=== PATIENT | female | born 1960 | race Caucasian/White ===

== ENCOUNTER 2023-11-22 15:02 | Outpatient (AMB) | payer BC, SELFPAY ==
--- NOTE | 2023-11-22 15:04 | MHC.OFFVIS ---
Vital Signs 11/22/23 15:16 Height 5 ft 7.5 in Weight 166 lb BMI 25.6 Intake Visit Reasons: Lipoma of skin Intake Note: This patient presents for lipoma assessment. Pt c/o; reports no pain, reports growing fast and it is developing some veins . Flight Instructor Required: No Accompanied by: Self / Same As Patient Allergies Bee Stings Allergy (Severe, Uncoded 11/22/23 15:10) Unknown HPI HPI Lipoma of skin: Details: 63-year-old female referred for a lipoma. She has this small soft mass on the right lower leg for several years now. However, this has been increasing in size. This has started to cause her some discomfort so she wants this removed. She has describes some skin changes on the overlying skin as well. [facility] Medical History (Updated 11/22/23 @ 15:21 by Francisco Corona MD) Lipoma of lower extremity Depression Insomnia Sleep apnea Migraine Surgical History Hx of section Family History Father Myocardial infarction Social History Alcohol intake: never Patient Tobacco Use Status: Never used Tobacco Review of Systems Const Denies chills and Denies fever(s) Card Denies chest pain, Denies dyspnea and Denies dyspnea on exertion Resp Denies cough, Denies dyspnea and Denies dyspnea on exertion GI Denies hematochezia and Denies change in bowel habits Denies hematuria Musc Denies back pain and Denies limited range of motion Neuro Denies focal weakness and Denies convulsions Psych Denies depression and Denies mood swings Physical Exam Const General: comfortable and no acute distress Orientation/consciousness: patient oriented x3 Neck Neck: Yes no lymphadenopathy Resp Auscultation: clear to auscultation bilaterally Cardio Rhythm: regular rhythm GI Palpation (GI): Soft to palpation, nontender and no guarding Neuro General: patient oriented x3 Extrem Other: Large lipoma on the posterior were leg, about 7-8 cm in widest dimension Assessment & Plan Assessment & Plan (1) Lipoma of lower extremity: Code(s): D17.20 - Benign lipomatous neoplasm of skin and subcutaneous tissue of unspecified limb Category: Medical Plan: She has this large lipoma on the lower leg as described above. She wants to proceed with excision in view of increased in size. I explained the technique of excision which I had recommended be done under monitored anesthesia care in view of the size. I discussed the risks including but not limited to bleeding, infections, poor healing, as well as the benefits and alternatives. I explained to her what to expect postoperatively. She has given consent. Coding Level of Care Code New Pt Level 3 (73451) Diagnoses Lipoma of lower extremity D17.20
[2023-11-22 15:16] VITALS: BMI 25.6
== END 2023-11-22 15:17 | disposition home or self-care (01) ==
PROVIDERS: PCP Physician Assistant; Referring Provider Physician Assistant; Visit Provider Surgery
DX: D17.20 Benign lipomatous neoplasm of skin and subcutaneous tissue of unspecified limb (principal)
CPT/HCPCS: 99203

== ENCOUNTER → 2023-11-22 15:02 | Outpatient (BNVA) | payer BC, SELFPAY | PROVIDERS: PCP Physician Assistant; Referring Provider Physician Assistant; Visit Provider Surgery ==

== ENCOUNTER 2024-01-30 08:25 | Day surgery (SDC) | payer BC, SELFPAY ==
[2024-01-26 14:23] VITALS: BMI 25.6
[2024-01-30 08:37] VITALS: BMI 28.1
[2024-01-30 08:50] VITALS: BP 135/79; PULSE 73; RESP 16; TEMP 37.2; O2SAT 98
[2024-01-30] MEDS: Lactated Ringers 1,000 ML 100 ML IVCONT (08:59)
--- NOTE | 2024-01-30 09:53 | MHC.SHP ---
Pre-Procedural Eval Section A - 24 Hr Update-Section A only Date of Service: 01/30/24 Section B - Complete if H&P > 30 days Chief Complaint: Benign lipomatous neoplasm of skin and subcutaneou Details of Present Illness: Has a large lipoma in the right lower leg Relevant Family History (Specify if Yes): No Relevant Social History: None Present Medications: see Short Stay Collaborative assessment Medical History: Significant History (Depression, sleep apnea) History of Previous Operations: No relevant previous surgery Allergies: Allergies Allergy/AdvReac Type Severity Reaction Status Date / Time Bee Stings Allergy Severe Unknown Uncoded 11/22/23 15:10 Review of Systems Sugical H&P ROS: Negative: Constitution, Cardiovascular, Respiratory and Gastrointestinal Exam Surgical H&P Exam: Normal: Heart and Normal: Lungs and Significant Findings: Extremities (Large lipoma posterior leg right) Plan Diagnosis/Plan: Unchanged I have reviewed the history and physical and performed a pertinent physical examination on my patient. No changes have occurred unless specified. Time Spent With Patient Time: Total time managing care of this patient today ____ minutes.
--- NOTE | 2024-01-30 09:58 | W.PM.OPN ---
Operative Note Operative Note Date of Service: 01/30/24
--- NOTE | 2024-01-30 10:14 | HO.ANESPROP2 ---
Documented by User: Carley Gale NP 01/29/24 12:04 HPI - Anesthesia Eval Consult details Narrative: 63yo F for Excision Lipoma on leg PMFSH Active Problems Active Problems: All Active Problems Lipoma of lower extremity (Acute) Depression (Acute) Insomnia (Acute) Sleep apnea (Acute) Migraine (Acute) Past Medical History Medical History (Updated 11/22/23 @ 15:21 by Francisco Corona MD) Lipoma of lower extremity Depression Insomnia Sleep apnea Migraine Family History Family History Father Myocardial infarction Surgical History Surgical History (Updated 01/30/24 @ 08:37 by Milena Macario RN) History of ankle surgery Hx of section Social History Social History Alcohol intake: never Patient Tobacco Use Status: Former Tobacco user Tobacco use type: Cigarette Use of substances other than those prescribed or required for medical reasons: Yes Are you DNR?: No Advance Directives: No Advance Directives Information Provided: Yes Recently lost weight without trying: No Nutrition Risks: No Nutritional Risk Patient : No Meds Allergies Allergy/AdvReac Type Severity Reaction Status Date / Time Bee Stings Allergy Severe Unknown Uncoded 11/22/23 15:10 Home Medications ?Medication ?Instructions ?Recorded ?Confirmed ?Last Taken ?Type epinephrine 0.3 mg/0.3 mL IM PRN Allergic Reaction 11/22/23 Unknown History injection, auto-injector meclizine 25 mg tablet 25 mg PO TID PRN Dizziness Or 11/22/23 01/26/24 Unknown History Vertigo methylphenidate HCl 5 mg tablet 5 mg PO TID 11/22/23 01/26/24 Unknown History trazodone 50 mg tablet 100 mg PO BEDTIME PRN Insomnia 11/22/23 01/26/24 Unknown History lorazepam 0.5 mg tablet 0.5 mg PO BID PRN anxiety 01/26/24 01/26/24 Unknown History sertraline 100 mg tablet 200 mg PO QPM 01/26/24 01/26/24 Unknown History Exam Height,Weight and Vital Signs: Height 5 ft 7.5 in Weight 75.296 kg Assessment and Plan Assessment Anesthesia Assessment: Chart Reviewed Documented by User: Geovanna Rose DO 01/30/24 10:15 [facility] Past Medical History Medical History (Updated 11/22/23 @ 15:21 by Francisco Corona MD) Lipoma of lower extremity Depression Insomnia Sleep apnea Migraine Family History Family History Father Myocardial infarction Family history of problems with anesthesia: No Surgical History Surgical History (Updated 01/30/24 @ 08:37 by Milena Macario RN) History of ankle surgery Hx of section History of Problems with Anesthesia: No Social History Social History Alcohol intake: never Patient Tobacco Use Status: Former Tobacco user Tobacco use type: Cigarette Use of substances other than those prescribed or required for medical reasons: Yes Are you DNR?: No Advance Directives: No Advance Directives Information Provided: Yes Recently lost weight without trying: No Nutrition Risks: No Nutritional Risk Patient : No Meds Allergies Allergy/AdvReac Type Severity Reaction Status Date / Time Bee Stings Allergy Severe Unknown Uncoded 11/22/23 15:10 Home Medications ?Medication ?Instructions ?Recorded ?Confirmed ?Last Taken ?Type epinephrine 0.3 mg/0.3 mL IM PRN Allergic Reaction 11/22/23 Unknown History injection, auto-injector meclizine 25 mg tablet 25 mg PO TID PRN Dizziness Or 11/22/23 01/26/24 Unknown History Vertigo methylphenidate HCl 5 mg tablet 5 mg PO TID 11/22/23 01/26/24 Unknown History trazodone 50 mg tablet 100 mg PO BEDTIME PRN Insomnia 11/22/23 01/26/24 Unknown History lorazepam 0.5 mg tablet 0.5 mg PO BID PRN anxiety 01/26/24 01/26/24 Unknown History sertraline 100 mg tablet 200 mg PO QPM 01/26/24 01/26/24 Unknown History Exam Exam Date and Time: 01/30/24 1000 Height,Weight and Vital Signs: Height 5 ft 7.5 in Weight 75.296 kg Vital Signs Temperature 99.0 F 01/30/24 08:50 Pulse Rate 73 01/30/24 08:50 Respiratory Rate 16 01/30/24 08:50 Blood Pressure 135/79 01/30/24 08:50 Pulse Oximetry 98 01/30/24 08:50 Oxygen Delivery Method Room Air 01/30/24 08:50 Temperature 99.0 F 01/30/24 08:50 Pulse Rate 73 01/30/24 08:50 Respiratory Rate 16 01/30/24 08:50 Blood Pressure 135/79 01/30/24 08:50 Pulse Oximetry 98 01/30/24 08:50 Oxygen Delivery Method Room Air 01/30/24 08:50 Airway Mallampati Class: I TM Dist: >3cm Neck ROM: Full Loose/Missing/Broken Teeth: No (patient denies any loose or broken teeth) Heart: S1S2 Lungs: CTAB Assessment and Plan Assessment Anesthesia Assessment: Anesthesia Plan Discussed and Chart Reviewed Final Anesthetic Review Family History of Problems with Anesthesia: No History of Problems with Anesthesia: No NPO: Yes ASA Class: II Final Preanesthetic Review: No Changes in Pt Med Stat, Meds/Allgs Chart Reviewed, Consent Obtained/Reviewed and Anes Risks/Benef Reviewed Patient Risk: Low Procedure Risk: Low Anesthetic Plan Anesthetic Plan: MAC: and Agree w/ Assess. and Plan Disposition: Standard PACU
--- NOTE | 2024-01-30 10:54 | P.OP_ITS ---
Operative Note Operative Note Date of Service: 01/30/24 Narrative: Preop diagnosis: Large lipoma, right lower leg Postop diagnosis: The same Procedure: Excision of large lipoma, right lower leg under anesthesia Surgeon: Francisco Corona MD high school assistant principal: THU Gates The patient is a 63 year old female with a large lipomatous mass on the right lower leg on the calf area laterally. She wanted this removed. She understood the technique of the planned procedure as well as the risks, benefits, and alternatives She was brought to the operating room. She was placed in left lateral decubitus position under monitored anesthesia care. The area of the lipomatous mass on the right lower leg was prepped and draped in the usual sterile fashion. A surgical time-out was done. The patient received cefazolin 2 g IV preoperatively. I infiltrated the planned line of incision with lidocaine 1%. I made a transverse incision in the skin overlying the lipoma with a blade 15. This carried down with electrocautery through the full-thickness of the the skin and subcutaneous fat until the lipomatous mass was visualized. I sharply dissected lipomatous mass around the rest of the deep subcutaneous layer circumferentially with electrocautery until the entire lipomas completely delivered. The lipoma measured 9 x 8 cm. I cauterized oozing areas from the excision site. Once hemostasis was confirmed, I irrigated. The incision was closed with full-thickness nylon 3-0 simple interrupted sutures. Dressings were applied. The procedure was completed The patient tolerated procedure well. There were no immediate complications. Initial and final counts of sponges and instruments were correct. Estimated blood loss was about 10 cc. The patient was extubated without difficulty and transferred to the recovery room with stable vital signs.
[2024-01-30 11:03] VITALS: BP 117/69; PULSE 60; RESP 16; TEMP 36.1; O2SAT 100
[2024-01-30 11:15] VITALS: BP 144/84; PULSE 64; RESP 16; O2SAT 100
[2024-01-30 11:30] VITALS: BP 145/77; PULSE 57; RESP 16; TEMP 36.1; O2SAT 100
== END 2024-01-30 12:08 | disposition home or self-care (01) ==
PROVIDERS: PCP Physician Assistant; Visit Provider Surgery
PROC: (CPT 27632; principal; 2024-01-30 10:20)
DX: D17.23 Benign lipomatous neoplasm of skin and subcutaneous tissue of right leg (principal); G47.30 Sleep apnea, unspecified; G47.00 Insomnia, unspecified; G43.909 Migraine, unspecified, not intractable, without status migrainosus; F32.A Depression, unspecified; Z79.899 Other long term (current) drug therapy; Z98.890 Other specified postprocedural states; Z87.891 Personal history of nicotine dependence
CPT/HCPCS: 27632; 88304; J0690; J1100; J1885; J2003; J2250; J2405; J2704; J3010

== ENCOUNTER → 2024-01-30 08:25 | Outpatient (BNV) | payer BC, SELFPAY | PROVIDERS: PCP Physician Assistant; Visit Provider Surgery | DX: D17.20 Benign lipomatous neoplasm of skin and subcutaneous tissue of unspecified limb (principal) | CPT/HCPCS: 27632 ==

== ENCOUNTER 2024-02-15 14:57 | Outpatient (AMB) | payer BC, SELFPAY ==
--- NOTE | 2024-02-15 14:58 | A.OFFVIS_ITS ---
Intake Visit Reasons: S/P exc. lipoma Rt leg Intake Note: This patient presents for suture removal status post excision large lipoma right leg. Pt c/o; reports no complaints at this time. Identity Access Management Architect Required: No Accompanied by: Self / Same As Patient Allergies Bee Stings Allergy (Severe, Uncoded 02/15/24 15:13) Unknown HPI HPI S/P exc. lipoma Rt leg: Details: She underwent excision of a lipoma from the posterior right lower leg under anesthesia last 01/30/2024. She tolerated procedure well. She currently denies significant complaints. [facility] Medical History Lipoma of lower extremity Depression Insomnia Sleep apnea Migraine Surgical History Status post excision of lipoma (~01/30/24) History of ankle surgery Hx of section Family History Father Myocardial infarction Social History Alcohol intake: never Patient Tobacco Use Status: Former Tobacco user Tobacco use type: Cigarette Review of Systems Const Denies chills and Denies fever(s) Physical Exam Const General: comfortable and no acute distress Extrem Other: Excision site on the posterior aspect of the right lower leg is well healed, sutures intact, no evidence of infection Assessment & Plan Assessment & Plan (1) Lipoma of lower extremity: Code(s): D17.20 - Benign lipomatous neoplasm of skin and subcutaneous tissue of unspecified limb Category: Medical Plan: Status post excision under anesthesia. She is doing well postoperatively. I removed all her sutures. The incisions well healed. Her path report confirms an angiolipoma. She can follow up on a p.r.n. basis Coding Level of Care Code Global (08047) Diagnoses Lipoma of lower extremity D17.20
== END 2024-02-15 15:44 | disposition home or self-care (01) ==
PROVIDERS: PCP Physician Assistant; Visit Provider Surgery
DX: D17.20 Benign lipomatous neoplasm of skin and subcutaneous tissue of unspecified limb (principal)
CPT/HCPCS: 99024

== ENCOUNTER 2024-09-03 09:57 | Emergency (ER) | payer MEDICARE, SELFPAY ==
[2024-09-03 10:19] VITALS: BP 126/78; PULSE 74; RESP 16; TEMP 36.3; O2SAT 99; BMI 27.4
--- NOTE | 2024-09-03 10:38 | ED.GENADULT ---
HPI - General Adult General Chief complaint: Wound/Laceration Stated complaint: left index finger lac Time Seen by Provider: 09/03/24 10:34 Source: patient, RN notes reviewed and old records reviewed Mode of arrival: ambulatory Limitations: no limitations History of Present Illness ED Provider: Star HPI narrative: Patient is a 63-year-old right-hand dominant female presenting to the emergency department with complaint of several lacerations to her left index finger. 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 She denies any decreased range of motion or numbness to her finger. She reports that she had to change the bandage several times last night but that the bleeding was controlled overnight and she did not bleed through the gauze during sleep. Unsure last Tdap. complaint: laceration Onset (ago): hour(s) Related Data Home Medications ?Medication ?Instructions ?Recorded ?Confirmed epinephrine 0.3 mg/0.3 mL IM PRN Allergic Reaction 11/22/23 injection, auto-injector meclizine 25 mg tablet 25 mg PO TID PRN Dizziness Or 11/22/23 01/26/24 Vertigo methylphenidate HCl 5 mg tablet 5 mg PO TID 11/22/23 01/26/24 trazodone 50 mg tablet 100 mg PO BEDTIME PRN Insomnia 11/22/23 01/26/24 lorazepam 0.5 mg tablet 0.5 mg PO BID PRN anxiety 01/26/24 01/26/24 sertraline 100 mg tablet 200 mg PO QPM 01/26/24 01/26/24 temazepam 30 mg capsule 30 mg PO BEDTIME PRN 02/15/24 Previous Rx's ?Medication ?Instructions ?Recorded ibuprofen 600 mg tablet 600 mg PO Q6H PRN pain #20 tabs 01/30/24 tramadol 50 mg tablet 50 mg PO Q6H PRN pain #12 tabs 01/30/24 bacitracin 500 unit/gram topical 1 appl topical TID #144 ea 09/03/24 packet Allergies Allergy/AdvReac Type Severity Reaction Status Date / Time Bee Stings Allergy Severe Anaphylaxis Uncoded 09/03/24 10:25 Review of Systems Review of Systems: as per hpi Yes all other systems are reviewed and are negative Constitutional: Constitutional: Reports as per HPI PMF Past Medical History Medical History Lipoma of lower extremity Depression Insomnia Sleep apnea Migraine Surgical History Status post excision of lipoma (~01/30/24) History of ankle surgery Hx of section Family History Family History Father Myocardial infarction Social History Social History Alcohol intake: never Patient Tobacco Use Status: Former Tobacco user Tobacco use type: Cigarette Advance Directives: No Advance Directives Information Provided: No Physical Exam ED Vital Signs: Vital Signs - 24 hr 09/03/24 10:19 Temperature 97.3 F Pulse Rate 74 Respiratory Rate 16 Blood Pressure 126/78 Pulse Oximetry 99 Oxygen Delivery Method Room Air BMI result Body Mass Index 27.4 Vital signs have been reviewed and appear to be correct. Blood pressure normal. Heart rate normal. Respiratory rate normal. Temperature normal. Oxygen saturation normal. Const General: cooperative, healthy appearing and no acute distress Orientation/consciousness: oriented to person, oriented to place, oriented to time and patient oriented x3 Limitations: no limitations HENMT Head: Yes normocephalic and Yes atraumatic Ears: external ears normal General nose exam: Normal external nose present Face and sinus: Yes face symmetric Mouth: oropharynx normal and moist mucous membranes Throat: Yes uvula midline Eyes Pupils: Equal, round and reactive pupils present Neck Neck: Yes normal visual inspection and Yes supple Resp Effort & Inspection: normal respiratory effort and able to speak in complete sentences Auscultation: clear to auscultation bilaterally Cardio Rate: regular rate Rhythm: regular rhythm Heart sounds: S1 normal heart sound present and S2 normal heart sound present GI Palpation (GI): Soft to palpation and nontender Auscultation: normoactive bowel sounds General: Yes no CVA tenderness Back/Spine/Pelvis Back: no CVA tenderness Skin General skin exam: elasticity normal and turgor normal Neuro General: oriented to person, oriented to place, oriented to time, patient oriented x3, moves all extremities, no focal motor deficits and CN's II-XI intact bilaterally Cranial nerves: Yes Equal, round and reactive pupils present Cognition (Neuro): normal cognition Extrem General: Yes full ROM, Yes no pedal edema and Yes no calf tenderness Left upper extremity: hand Details: normal capillary refill, neuromotor exam normal, neurosensory exam normal, normal ROM of fingers and laceration 2nd digit dorsal aspect distal Details: linear (3 lacerations, superficial) Hand/finger images:  1. Superficial laceration 2. Superficial laceration 3. Superficial laceration Psych Mental Status: mental status grossly normal Affect: normal affect Thought process: Normal thought process present Medical Decision Making Medical Decision Making [facility] Narrative: Patient is a 63-year-old right-hand dominant female presenting to the emergency department with complaint of several lacerations to her left index finger. On exam patient is awake, A+Ox3, VS WNL, afebrile, normal neurological exam without focal deficits, physical exam findings as above. Given reported symptoms and physical exam findings, initial differential includes but is not limited to laceration of index finger. No evidence of tendon injury on physical exam. No evidence of cellulitis or infection. Wounds soaked in saline and Betadine for 15 minutes and re-evaluated, wound edges well approximated. Wound repair options discussed with patient including glue versus sutures and patient prefers glue, I am agreeable to this as the wounds are superficial. Steri-Strips applied and lacerations glued. Dressing applied. Wound care instructions and return precautions discussed with patient at bedside. Tdap updated. Patient verbalized understanding of and agreement with plan. Differential Diagnosis Differential Diagnoses: The differential diagnosis associated with the presentation includes as per mdm Admission/Observation Consideration of admission/observation: Escalation of care including admission/observation considered Patient would have been admitted to the hospital had their clinical presentation warranted hospital admission. External Record Review External record reviewed: Inpatient record, Office record and Outpatient record Discharge Plan Discharge Clinical Impression: Laceration of left index finger Qualifiers: Encounter type: initial encounter Damage to nail status: without damage Foreign body presence: without foreign body Qualified Code(s): S61.211A - Laceration without foreign body of left index finger without damage to nail, initial encounter Patient Disposition: Home, Self-Care Instructions: Finger Laceration (ED), Skin Adhesive Care (ED) Additional Instructions: You have been evaluated in the emergency department today for a laceration to your finger. Your laceration was repaired in the emergency department with skiin glue. Please keep the area surrounding the laceration clean and dry and keep dressing in place for the next 24 hours. After that please change the dressing and assess the wound daily. Do not submerge the wound in water until the wound has fully healed (no washing dishes, swimming, hot tubs, etc. and ESPECIALLY no outdoor water). Keep the area out of direct sunlight for the next 6 months to help prevent scarring. The glue will fall off on its own, do not pick or peel at the edges. If you develop fever, redness, swelling at the site of your laceration, or thick yellow drainage please come back to the ER for a wound check. Prescriptions: New bacitracin 500 unit/gram packet 1 appl topical TID Qty: 144 0RF No Action sertraline 100 mg tablet 200 mg PO QPM lorazepam 0.5 mg tablet 0.5 mg PO BID PRN (Reason: anxiety) tramadol 50 mg tablet 50 mg PO Q6H PRN (Reason: pain) Qty: 12 0RF ibuprofen 600 mg tablet 600 mg PO Q6H PRN (Reason: pain) Qty: 20 0RF temazepam 30 mg capsule 30 mg PO BEDTIME PRN meclizine 25 mg tablet 25 mg PO TID PRN (Reason: Dizziness Or Vertigo) methylphenidate HCl 5 mg tablet 5 mg PO TID trazodone 50 mg tablet 100 mg PO BEDTIME PRN (Reason: Insomnia) epinephrine 0.3 mg/0.3 mL auto-injector IM PRN (Reason: Allergic Reaction) Print Language: Ukrainian
[2024-09-03] MEDS: Diphth,Pertus(ACell),Tet Adult 0.5 ML SYRINGE IM (11:13)
[2024-09-03 11:44] VITALS: BP 126/78; PULSE 74; RESP 16; TEMP 36.3; O2SAT 99
--- OUTSIDE RECORDS SUMMARY | 2024-09-03 11:48 | XMS_ITS | Encounter Summary ---
Author Organization [facility] Address [address] [place] [id number] Phone Care Team Providers Care Wet Plant Operator Name Role Phone Margarita Novoa Primary Care Provider [phone] Encounter Details Date Type Department Care Team (Late st Contact Info) Description 05/07/2020 Procedure Pass [facility] Endoscopy Admitting Dept Virtual Department [address] [place] [address] Social History Tobacco Use Types Packs/Day Years Used Date Smoking Tobacco: Former Cigarettes Q uit: 1985 Smokeless Tobacco: Never Alcohol Use Standard Drinks/Week Comments Yes 1 (1 standard drink = 0.6 oz pur e alcohol) Comments No Sex and Gender Information Value Date Recorded Sex Assigned at Female 02/20/2018 10:35 PM EST Legal Sex Female 9:48 PM EDT Gender Identity Female 02/20/2018 10:35 PM EST Sexual Orientation Straight 02/20/2018 10 :35 PM EST documented as of this encounter Plan of Treatment Not on file documented as of this encounter Visit Diagnoses Not on filedocumented in this encounter Care Teams Wet Plant Operator Relationship Specialty Start Date End Date Margarita Novoa PA [address] [place] [id number] PCP - General 05/07/20 documented as of this encounter Additional Source Comments The information contained in this document represents components of the legal health record. It is not the complete legal health record.[facility]
== END 2024-09-03 11:45 | disposition home or self-care (01) ==
PROVIDERS: Absent Provider Physician Assistant; Emergency Provider Emergency Medicine
DX: S61.211A Laceration without foreign body of left index finger without damage to nail, initial encounter (principal); W29.0XXA Contact with powered kitchen appliance, initial encounter; Y93.G1 Activity, food preparation and clean up; Y92.030 Kitchen in apartment as the place of occurrence of the external cause; Y99.9 Unspecified external cause status; Z23 Encounter for immunization
CPT/HCPCS: 12001; 90471; 90715; 99282; 99284